=== PATIENT | male | born 1995 | race Caucasian/White ===

== ENCOUNTER 2021-10-12 08:15 | Emergency (ER) | payer OTHER ==
[2021-10-12] MEDS ORDERED: KETOROLAC TROMETHAMINE 30 MG/1 ML VIAL ONE (08:36)
[2021-10-12 08:56] VITALS: BP 138/83; PULSE 64; TEMP 98.6; BMI 25.7
[2021-10-12] MEDS ORDERED: KETOROLAC TROMETHAMINE 30 MG/1 ML VIAL IM ONE (09:43)
== END 2021-10-12 09:52 | disposition home or self-care (01) ==
LOC: JER 08:15
PROC: 3E0233Z Introduction of Anti-inflammatory into Muscle, Percutaneous Approach (ICD-10-PCS; principal; 2021-10-12)
DX: S46.911A Strain of unspecified muscle, fascia and tendon at shoulder and upper arm level, right arm, initial encounter (principal); M75.21 Bicipital tendinitis, right shoulder; X50.0XXA Overexertion from strenuous movement or load, initial encounter
CPT/HCPCS: 99284-25

== ENCOUNTER 2024-02-07 19:05 | Emergency (ER) | payer BC, OTHER ==
[2024-02-07 19:13] VITALS: BP 122/81; PULSE 88; RESP 18; TEMP 98; BMI 29.0
== END 2024-02-07 22:27 | disposition home or self-care (01) ==
LOC: JERFT 19:05
PROC: 0YQGXZZ Repair Left Knee Region, External Approach (ICD-10-PCS; principal; 2024-02-07)
DX: S81.012A Laceration without foreign body, left knee, initial encounter (principal); S40.812A Abrasion of left upper arm, initial encounter; M79.672 Pain in left foot; W18.30XA Fall on same level, unspecified, initial encounter
CPT/HCPCS: 73562-TC-LT-FY; 73630-TC-LT; 99283-25